=== PATIENT | female | born 1940 | race Caucasian/White ===

== ENCOUNTER → 2017-11-03 | Outpatient (CLI) | payer MEDICARE, OTHER ==
[~2017-11-03] MED LIST: ALBU90OI INH; AZIT250 PO; BUDE6HFA INH; DOCU100 PO; DULERA 200 MCG/13 GM INH; FAMO20 PO; LOVA40 PO; MIRT15 PO; OMEP20ER; OXYB5; PARO20; PRIM250; PRIM50 PO; PROP20; Percocet 5-3251 EACH PO; ROXICODONE5 MG PO; SENN187 PO; SERT50 PO; TIOT18 INH
== END | disposition home or self-care (01) ==
LOC: LAB SHORT 17:33 → LAB 17:33
DX: N39.41 Urge incontinence (principal)
CPT/HCPCS: 87086

== ENCOUNTER → 2018-12-20 | Outpatient (CLI) | payer MEDICARE, OTHER ==
[~2018-12-20] MED LIST changes: +ATOR10 PO; +Augmentin 875-1 EACH PO; +PARO20 PO; -PRIM50 PO; +Primidone50 MG PO
[2018-12-20 13:09] LABS: BASOPHILS ABSOLUTE AUTO 0.02 K/mm3 (0.00-0.23); BASOPHILS PERCENT AUTO 0 % (0-2); EOSINOPHILS ABSOLUTE AUTO 0.15 K/mm3 (0.00-0.68); EOSINOPHILS PERCENT AUTO 2 % (0-6); Hematocrit 40.6 % (33.0-51.0); Hemoglobin 13.1 g/dL (11.5-16.0); IMMATURE GRAN ABSOLUTE AUTO 0.02 K/mm3 (0.00-0.10); IMMATURE GRAN PERCENT AUTO 0 % (0-1); LYMPHOCYTES ABSOLUTE AUTO 2.21 K/mm3 (0.84-5.20); LYMPHOCYTES PERCENT AUTO 33 % (21-46); MONOCYTES ABSOLUTE AUTO 0.66 K/mm3 (0.16-1.47); MONOCYTES PERCENT AUTO 10 % (4-13); Mean Corpuscular HGB 31.3 pg (26.0-34.0); Mean Corpuscular HGB Conc 32.3 g/dL (31.5-36.5); Mean Corpuscular Volume 97 fL (80-100); NEUTROPHILS ABSOLUTE AUTO 3.64 K/mm3 (1.96-9.15); NEUTROPHILS PERCENT AUTO 54 % (41-73); Platelet Count 253 K/mm3 (150-400); RDW Coefficient Variation 13.1 % (11.7-14.2); RDW Standard Deviation 46.6 fL (35.1-46.3); Red Blood Cell Count 4.19 M/mm3 (3.80-5.20)
[2018-12-20 13:29] LABS: Alanine Aminotransfer (ALT/SGP 21 U/L (12-78); Albumin, Blood 3.6 g/dL (3.4-5.0); Alk Phos 63 U/L (50-136); Anion Gap 5 mmol/L (6-16); Aspartate Aminotrans (AST/SGOT 13 U/L (12-37); Bilirubin, Total 0.4 mg/dL (0.1-1.0); Blood Urea Nitrogen 7 mg/dL (8-24); Bun/Creatinine Ratio 10.1 (12.0-20.0); CO2, Blood 32 mmol/L (21-32); Calcium, Blood 8.3 mg/dL (8.5-10.1); Chloride, Blood 105 mmol/L (98-108); Globulin, Blood 3.6 g/dL (2.2-4.0); Glomerular Filtration Rate >60 (60-); Glucose, Blood 94 mg/dL (70-99); Potassium, Blood 3.3 mmol/L (3.5-5.5); Sodium, Blood 142 mmol/L (136-145); Total Protein, Blood 7.2 g/dL (6.4-8.2)
== END | disposition home or self-care (01) ==
LOC: LAB 12:59 → LAB SHORT 12:59
PROVIDERS: Physician Assistant
DX: N39.0 Urinary tract infection, site not specified (principal); R19.7 Diarrhea, unspecified; R53.83 Other fatigue
CPT/HCPCS: 0097U; 80053; 85025; 87086

== ENCOUNTER 2018-12-28 14:22 | Emergency (ER) | payer MEDICARE, OTHER ==
[~2018-12-28] VITALS: Ht 160 cm; Wt 77.1 kg
[~2018-12-28 14:22] MED LIST changes: -ATOR10 PO; -Augmentin 875-1 EACH PO; -PARO20 PO
[2018-12-28] MEDS ORDERED: PARO20 PO (15:14)
[2018-12-28] MEDS ORDERED: ATOR10 PO (15:14)
[2018-12-28 15:20] LABS: BASOPHILS ABSOLUTE AUTO 0.03 K/mm3 (0.00-0.23); BASOPHILS PERCENT AUTO 0 % (0-2); EOSINOPHILS ABSOLUTE AUTO 0.11 K/mm3 (0.00-0.68); EOSINOPHILS PERCENT AUTO 1 % (0-6); Hematocrit 40.8 % (33.0-51.0); IMMATURE GRAN ABSOLUTE AUTO 0.05 K/mm3 (0.00-0.10); IMMATURE GRAN PERCENT AUTO 1 % (0-1); LYMPHOCYTES ABSOLUTE AUTO 1.52 K/mm3 (0.84-5.20); LYMPHOCYTES PERCENT AUTO 14 % (21-46); MONOCYTES ABSOLUTE AUTO 0.92 K/mm3 (0.16-1.47); MONOCYTES PERCENT AUTO 9 % (4-13); Mean Corpuscular HGB Conc 31.9 g/dL (31.5-36.5); Mean Corpuscular Volume 97 fL (80-100); Mean Platelet Volume 10.1 fL (9.1-12.4); NEUTROPHILS ABSOLUTE AUTO 8.03 K/mm3 (1.96-9.15); NEUTROPHILS PERCENT AUTO 75 % (41-73); Platelet Count 228 K/mm3 (150-400); RDW Standard Deviation 46.1 fL (35.1-46.3); White Blood Cell Count 10.66 K/mm3 (4.00-11.30)
[2018-12-28 15:28] LABS: Alanine Aminotransfer (ALT/SGP 21 U/L (12-78); Albumin, Blood 3.5 g/dL (3.4-5.0); Alk Phos 65 U/L (50-136); Anion Gap 7 mmol/L (6-16); Aspartate Aminotrans (AST/SGOT 17 U/L (12-37); Bilirubin, Total 0.7 mg/dL (0.1-1.0); Blood Urea Nitrogen 12 mg/dL (8-24); Bun/Creatinine Ratio 15.4 (12.0-20.0); CO2, Blood 29 mmol/L (21-32); Calcium, Blood 8.3 mg/dL (8.5-10.1); Chloride, Blood 101 mmol/L (98-108); Creatinine, Blood 0.78 mg/dL (0.40-1.00); Globulin, Blood 3.5 g/dL (2.2-4.0); Glomerular Filtration Rate >60 (60-); Glucose, Blood 159 mg/dL (70-99); Potassium, Blood 3.4 mmol/L (3.5-5.5); Sodium, Blood 137 mmol/L (136-145)
[2018-12-28 17:11] LABS: Source, Urine Clean Catch
[2018-12-28] MEDS ORDERED: Augmentin 875-1 EACH PO (17:21)
[2018-12-28 17:27] LABS: Bilirubin, Urine Neg (Neg); Blood, Urine Neg (Neg); Glucose Qualitative, Urine Neg (Neg); Ketones, Urine Neg (Neg); Leukocyte Esterase, Urine Neg (Neg); Nitrite, Urine Neg (Neg); Protein, Urine Neg (Neg); Urobilinogen, Urine NORM (Normal)
[2018-12-28 17:50] LABS: Appearance, Urine Clear (Clear); Color, Urine Yellow (P-Yellow)
== END 2018-12-28 18:28 | disposition home or self-care (01) ==
LOC: ER 14:22
PROVIDERS: Physician Assistant
DX: K52.9 Noninfective gastroenteritis and colitis, unspecified (principal); Z79.899 Other long term (current) drug therapy; E78.5 Hyperlipidemia, unspecified; J44.9 Chronic obstructive pulmonary disease, unspecified; Z87.891 Personal history of nicotine dependence
CPT/HCPCS: 36415; 74177; 80053; 81003; 83690; 85025; 93005; 93010; 99284-25; J7120; Q9967

== ENCOUNTER → 2019-01-17 | Outpatient (CLI) | payer MEDICARE, OTHER ==
[~2019-01-17] MED LIST changes: +ATOR10 PO; +Augmentin 875-1 EACH PO; +PARO20 PO
[2019-01-18 09:55] LABS: C DIFFICILE BY DNA AMP Positive (Negative)
== END | disposition home or self-care (01) ==
LOC: LAB 20:30 → LAB SHORT 20:30 → LAB FUT 01-18 15:25 → EDSTATUS 01-18 15:25
PROVIDERS: Internal Medicine
DX: K51.50 Left sided colitis without complications (principal)
CPT/HCPCS: 87324; 87493

== ENCOUNTER → 2019-02-22 | Outpatient (CLI) | payer MEDICARE, OTHER ==
[2019-02-22 11:47] LABS: Adenovirus F 40/41 Not Detected (NOT DETECT); Astrovirus Not Detected (NOT DETECT); Campylobacter Sp Not Detected (NOT DETECT); Cryptosporidium Not Detected (NOT DETECT); Cyclospora Cayetanensis Not Detected (NOT DETECT); E. Coli O157 Not Detected (NOT DETECT); Entamoeba Histolytica Not Detected (NOT DETECT); Enteroaggregative E. coli-EAEC Not Detected (NOT DETECT); Enteropathogenic E. coli-EPEC Not Detected (NOT DETECT); Enterotoxigenic E. coli-ETEC Not Detected (NOT DETECT); Giardia Lamblia Not Detected (NOT DETECT); Norovirus GI/GII Not Detected (NOT DETECT); Plesiomonas Shigelloides Not Detected (NOT DETECT); Rotavirus A Not Detected (NOT DETECT); Salmonella Sp Not Detected (NOT DETECT); Sapovirus Not Detected (NOT DETECT); Shiga Toxin-prod E. coli-STEC Not Detected (NOT DETECT); Shigella/Enteroin E. coli-EIEC Not Detected (NOT DETECT); Vibrio Cholerae Not Detected (NOT DETECT); Vibrio Sp Not Detected (NOT DETECT); Yersinia Enterocolitica Not Detected (NOT DETECT)
== END | disposition home or self-care (01) ==
LOC: LAB SHORT 09:56 → LAB 09:56 → LAB FUT 02-22 10:05
PROVIDERS: Student in an Organized Health Care Education/Training Program
DX: K52.9 Noninfective gastroenteritis and colitis, unspecified (principal)
CPT/HCPCS: 0097U

== ENCOUNTER 2019-07-10 12:11 | Inpatient (IN) | payer MEDICARE, OTHER ==
[~2019-07-10] VITALS: Ht 160 cm; Wt 62.2 kg
[~2019-07-10 12:11] MED LIST changes: -ALBU90OI INH; -LOVA40 PO; -PARO20 PO; -Primidone50 MG PO
[2019-07-10 13:00] LABS: BASOPHILS ABSOLUTE AUTO 0.08 K/mm3 (0.00-0.23); BASOPHILS PERCENT AUTO 1 % (0-2); EOSINOPHILS PERCENT AUTO 12 % (0-6); Hematocrit 42.9 % (33.0-51.0); Hemoglobin 13.3 g/dL (11.5-16.0); IMMATURE GRAN ABSOLUTE AUTO 0.04 K/mm3 (0.00-0.10); IMMATURE GRAN PERCENT AUTO 0 % (0-1); LYMPHOCYTES ABSOLUTE AUTO 2.37 K/mm3 (0.84-5.20); LYMPHOCYTES PERCENT AUTO 26 % (21-46); MONOCYTES ABSOLUTE AUTO 0.68 K/mm3 (0.16-1.47); MONOCYTES PERCENT AUTO 7 % (4-13); Mean Corpuscular HGB 31.4 pg (26.0-34.0); Mean Corpuscular Volume 101 fL (80-100); Mean Platelet Volume 10.2 fL (9.1-12.4); NEUTROPHILS ABSOLUTE AUTO 4.88 K/mm3 (1.96-9.15); NEUTROPHILS PERCENT AUTO 53 % (41-73); Platelet Count 273 K/mm3 (150-400); RDW Coefficient Variation 13.2 % (11.7-14.2); RDW Standard Deviation 49.1 fL (35.1-46.3); Red Blood Cell Count 4.24 M/mm3 (3.80-5.20); White Blood Cell Count 9.15 K/mm3 (4.00-11.30)
[2019-07-10 13:27] LABS: Troponin I <0.015 ng/mL (0.000-0.040)
[2019-07-10 13:28] LABS: Alanine Aminotransfer (ALT/SGP 31 U/L (12-78); Albumin, Blood 3.3 g/dL (3.4-5.0); Albumin/Globulin Ratio 0.9 (0.8-1.8); Alk Phos 64 U/L (50-136); Anion Gap 3 mmol/L (6-16); Aspartate Aminotrans (AST/SGOT 20 U/L (12-37); Bilirubin, Total 0.2 mg/dL (0.1-1.0); Blood Urea Nitrogen 14 mg/dL (8-24); Bun/Creatinine Ratio 20.4 (12.0-20.0); CO2, Blood 36 mmol/L (21-32); Calcium, Blood 8.9 mg/dL (8.5-10.1); Chloride, Blood 103 mmol/L (98-108); Creatinine, Blood 0.69 mg/dL (0.40-1.00); Globulin, Blood 3.7 g/dL (2.2-4.0); Glomerular Filtration Rate >60 (60-); Glucose, Blood 104 mg/dL (70-99); Potassium, Blood 3.5 mmol/L (3.5-5.5); Sodium, Blood 142 mmol/L (136-145)
[2019-07-10] MEDS ORDERED: LOVA40 PO (14:45)
[2019-07-10] MEDS ORDERED: ALBU90OI INH (14:46)
[2019-07-10] MEDS ORDERED: Mysoline250 MG PO (14:46)
[2019-07-10] MEDS ORDERED: Dyazide 37.5-21 EACH PO (14:47)
[2019-07-10] MEDS ORDERED: MONT10T PO (14:47)
[2019-07-10] MEDS ORDERED: Paxil40 MG PO (14:47)
[2019-07-10] MEDS ORDERED: POTA8 PO (14:48)
[2019-07-10] MEDS ORDERED: PROBIOTIC1 EAC2 PO (14:48)
[2019-07-10] MEDS ORDERED: STIOLTO RESPIMAT4 GM INH (14:57)
[2019-07-10] MEDS ORDERED: ALBU2.5V5 INH (14:58)
--- NOTE | 2019-07-10 18:48 | NUR ---
PT ARRIVED TO PCU 1 VIA GURNEY FROM ED. SHE WAS MOVED TO BED, SHE IS ON BIPAP, TOLERATING OK. BUT WANTS TO DRINK AND IS HUNGRY. CALLED DR. BECERRIL REGARDING FEEDING HER, SHE IS OK FOR HER TO HAVE SOMETHING LONG SHE ISN'T OFF BIPAP VERY LONG, WILL GIVE HER AN ENSURE TONIGHT, SHE IS A/OX3, PLEASANT AND COOPERATIVE WITH CARE, FOLLOWS COMMANDS WELL, DENIES ANY COMPLAINTS OF PAIN, LUNGS ARE DIM T/O, OCC PRODUCTIVE COUGH OF CLEAR SPUTUM IS HER NORM, SATS ARE 94-95% ON BIPAP, REMOVED IT AND PUT HER ON 6 LITERS 0XYMIZER FOR A DRINK OF WATER, SHE CAME DOWN TO 90%, PLACED HER BACK ON BIPAP, HRR, TELE IN PLACE RUNNING SR PER MONITOR, SEE STRIP, NO EDEMA NOTED, PPP+2, CAP REFILL <3SEC, VS STABLE, AFEBRILE, IV TO RIGHT AND LEFT FA'S, BTX4, ABD FLAT SOFT NONTENDER, VOIDS WITHOUT DIFF, SKIN C/W/D, MAEW, BLADIMIR, CALL LIGHT IN REACH.
[2019-07-11 03:51] LABS: Hematocrit 38.3 % (33.0-51.0); Mean Corpuscular HGB 31.3 pg (26.0-34.0); Mean Corpuscular HGB Conc 31.3 g/dL (31.5-36.5); Mean Corpuscular Volume 100 fL (80-100); Mean Platelet Volume 10.3 fL (9.1-12.4); Platelet Count 256 K/mm3 (150-400); RDW Standard Deviation 47.6 fL (35.1-46.3); Red Blood Cell Count 3.83 M/mm3 (3.80-5.20)
[2019-07-11 04:08] LABS: Anion Gap 5 mmol/L (6-16); Blood Urea Nitrogen 13 mg/dL (8-24); Bun/Creatinine Ratio 20.7 (12.0-20.0); CO2, Blood 30 mmol/L (21-32); Chloride, Blood 107 mmol/L (98-108); Creatinine, Blood 0.63 mg/dL (0.40-1.00); Glomerular Filtration Rate >60 (60-); Glucose, Blood 110 mg/dL (70-99); Potassium, Blood 3.8 mmol/L (3.5-5.5); Sodium, Blood 142 mmol/L (136-145)
--- NOTE | 2019-07-11 05:01 | NUR ---
Shift Summary Pt is alert and oriented. No apparent sign of distress this shift. VSS. Pt tolerating [place] humidified NC at 5-7 L depending on excertion. At times, pt has coughing episodes and desaturates, able to recover. Pt SBA to BSC for voiding and BM this shift. NS infusing to LFA at 75mls per order. Pt is able to make needs known with call light, is calm and cooperative with care. Pt tearful at times this shift when speaking about late who in March of 2019; pt stating "I lost 40 pounds and began smoking again". Pt ecouraged to quit smoking, responded well to encouragement. Potassium replaced overnight per orders, results this AM are 3.8. No events on tele. No complaints of pain or discomfort. Pt with no acute changes from initial shift assessment. Will continue to monitor until day RN assumes care
[2019-07-11 06:48] LABS: Adenovirus Not Detected (NOT DETECT); Bordetella pertussis Not Detected (NOT DETECT); Chlamydophila pneumoniae Not Detected (NOT DETECT); Coronavirus 229E Not Detected (NOT DETECT); Coronavirus HKU1 Not Detected (NOT DETECT); Coronavirus NL63 Not Detected (NOT DETECT); Coronavirus OC43 Not Detected (NOT DETECT); Human Metapneumovirus Not Detected (NOT DETECT); Human Rhinovirus/Enterovirus Not Detected (NOT DETECT); Influenza A Not Detected (NOT DETECT); Influenza A/2009-H1 Not Detected (NOT DETECT); Influenza A/H1 Not Detected (NOT DETECT); Influenza A/H3 Not Detected (NOT DETECT); Influenza B Not Detected (NOT DETECT); Mycoplasma pneumoniae Not Detected (NOT DETECT); Parainfluenza Virus 1 Not Detected (NOT DETECT); Parainfluenza Virus 2 Not Detected (NOT DETECT); Parainfluenza Virus 3 Not Detected (NOT DETECT); Parainfluenza Virus 4 Not Detected (NOT DETECT); Respiratory Syncytial Virus Not Detected (NOT DETECT)
[2019-07-11] MEDS ORDERED: Dyazide 37.5/251 EA PO (10:44)
[2019-07-11] MEDS ORDERED: PROM25 PO (10:45)
[2019-07-11] MEDS ORDERED: STIOLTO RESPIMAT4 GM INH (10:46)
[2019-07-11] MEDS ORDERED: POTA8 PO (10:47)
[2019-07-11] MEDS ORDERED: MONT10T PO (10:48)
--- NOTE | 2019-07-11 17:12 | NUR ---
SHIFT SUMMARY: PT ALERT AND ORIENTED X 3. PT CHANGED TO MEDICAL STATUS TODAY AWAITING TO TRANSFER TO MEDICAL FLOOR. PT HRR SR ON THE 60'S DENIES CHEST PAIN FOR THE SHIFT. PT WITH OCCASIONAL MOIST COUGH MEDICATED WITH COUGH MEDICINE AND BREATHING TX REPORTED EFFECTIVE PER PT. PT 02 TITRATED TO 6L VIA NASAL CANNULA, PT SATS KEPT ABOVE 90% FOR THE SHIFT, THE REST OF THE VITALS REMAINED STABLE. PT STAND BY ASSISTS FOR TOILET TRANSFER. COMPLIANT WITH MEDIACTION REGIMEN, TO REPORT TO ONCOMING SHIFT. WILL MONITOR.
--- NOTE | 2019-07-11 21:00 | NUR ---
Assumed care Pt alert and oriented, family at bedside, VSS, call light in reach, able to make needs known by using call light, SBA with FWW to bathroom for voiding, steady gait. Pt is medical status without tele per orders. Persistant cough. Pt is 6L [place] Humidified NC, plan to attempt to titrate to baseline of 5L NC. No acute concerns to note at this time.
--- NOTE | 2019-07-12 01:45 | NUR ---
Pt oxygen titrated to 5L HFNC; baseline for pt. Will continue to monitor. Oxygen saturations 91%
--- NOTE | 2019-07-12 05:45 | NUR ---
Shift Summary No acute events overnight. Pt continues with episodes of coughing which results in moderate desaturations down to 80-85%, pt recovers rapidly once coughing stops. Pt with productive cough. Otherwise, respiratory status improving this shift as evidenced by pt tolerating o2 titration down to baseline 5L NC. Pt also improving as evidenced by pt tolerating walking to bathroom without desaturation or increased oxygen demand (last noc pt only tolerating bsc). Pt is alert and oriented, VSS. Pt uses call light to make needs known. Bed low and locked. Will continue to monitor.
--- NOTE | 2019-07-12 10:14 | NUR ---
PT AWAKE RESTING IN BED THIS AM W FAMILY AT BEDSIDE. PT DENIED C/O PAIN OR SOB WORSE THAN BASELINE. PT STATES SHE FEELS BETTER THIS AM AND IS HOPING TO GO HOME TODAY. SATS 97-90% ON 5L (BASELINE 02) VIA NC. SATS DROP TO 87% WITH SPEECH, EATING; DYSPNEA W EXERTION. LUNGS VERY TIGHT T/O W VERY DIMINISHED LUNG SOUNDS TO BASES. SCATTERED WHEEZING TO UPPER LOBES. PT ABLE TO AMBUALTE TO BATHROOM W SBA. DR BECERRIL TO SEE PT SHORTLY.
--- NOTE | 2019-07-12 11:47 | NUR ---
ASSUMED PT CARE, TRANSFER FROM PCU 1. DX COPD EXAC. LUNGS ARE DECREASED T/O HOWEVER NO WHEEZES @ THIS TIME. SHE STATE SHORTNESS OF BREATH IMPROVING. PLEASANT AFFECT. IV SOLUMEDROL 60MG GIVEN/ORDER. SUPPORTIVE FAMILY @ BEDSIDE. VSS w BIOX 94% 5L.
[2019-07-12 15:11] LABS: Adenovirus F 40/41 Not Detected (NOT DETECT); Astrovirus Not Detected (NOT DETECT); Campylobacter Sp Not Detected (NOT DETECT); Cryptosporidium Not Detected (NOT DETECT); Cyclospora Cayetanensis Not Detected (NOT DETECT); E. Coli O157 Not Detected (NOT DETECT); Entamoeba Histolytica Not Detected (NOT DETECT); Enteroaggregative E. coli-EAEC Not Detected (NOT DETECT); Enteropathogenic E. coli-EPEC Not Detected (NOT DETECT); Enterotoxigenic E. coli-ETEC Not Detected (NOT DETECT); Giardia Lamblia Not Detected (NOT DETECT); Norovirus GI/GII Not Detected (NOT DETECT); Plesiomonas Shigelloides Not Detected (NOT DETECT); Rotavirus A Not Detected (NOT DETECT); Salmonella Sp Not Detected (NOT DETECT); Sapovirus Not Detected (NOT DETECT); Shiga Toxin-prod E. coli-STEC Not Detected (NOT DETECT); Shigella/Enteroin E. coli-EIEC Not Detected (NOT DETECT); Vibrio Cholerae Not Detected (NOT DETECT); Vibrio Sp Not Detected (NOT DETECT); Yersinia Enterocolitica Not Detected (NOT DETECT)
--- NOTE | 2019-07-12 18:16 | NUR ---
SUMMARY PT IS A/O X4, PLEASANT AFFECT. SHE IS UP W SBA/FWW TO BR. DX COPD EXAC. LUNGS VERY DECREASED T/O, @ X'S EXP WHEEZES, O2 @ 5L, BIOX 90-92%, SGE STATE CINTUNUING SHORTNESS OF BREATH HOWEVER STATES IMPROVING. SHE HAD ONE EPISODE SINCE TRANSFER TO MEDICAL FLOOR TODAY WHERE SHE STATE EXTREME SOB, RESPTHER NOTIFIED, PROVIDE NEB TX, PT ABLE TO GET RELIEF. @ X'S SHE HAS DRY HACKING COUGH, HAVE GIVEN PRN TESSALON/ORDER & SCHEDULED HUMABID LA. SHE STATE LOOSE STOOLS X "1 MONTH", DR WHITTEN GI PANEL WHICH WAS NEGATIVE. VSS
--- NOTE | 2019-07-13 05:04 | NUR ---
SHIFT SUMMARY PT IS A 78 Y/O FEMALE, ADMITTED FOR ACUTE RESPIRATORY FAILURE. SHE IS A&O X 4, AND SBA/INDEPENDENT TO THE BATHROOM. PT REPORTED AN INTERMITTENT NONPRODUCTIVE COUGH. NO COMPLAINTS OF PAIN, NAUSEA OR ACUTE SOB. VITAL SIGNS STABLE. NO OTHER ACUTE CHANGES IN PT CONDITION NOTED. WILL CONTINUE TO MONITOR AND TREAT PER EMAR UNTIL HAND OFF TO DAY SHIFT RN.
[2019-07-13] MEDS ORDERED: BENZ100A PO (11:55)
[2019-07-13] MEDS ORDERED: Prednisone20 MG PO (11:55)
--- NOTE | 2019-07-13 15:00 | NUR ---
DISCHARGE PT STATE BREATHING CONTINUES TO IMPROVE. LS CONTINUE DECREASED, SHE STATE COUGH BECOMING MORE PRODUCTIVE. O2 @ HOME DOSE 5L. DR BECERRIL IN TO SEE HER STATE OK FOR D/C HOME TODAY AFTER HOME O2 EVAL. 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 D/C INSTRUCT PROVIDED, F/U APPTS SCHEDULED W CREDIT CARD CONTROL CLERK FOR JUL 20 @ 4PM & PCP TOMORROW @ 3PM, PT STATE SATISFACTION. IV SITES DC INTACT. SCRIPTS FAXED TO [facility]/REQUEST. SHE STATE TRANSPORTATION HOME ENROUTE W PORTABLE O2. SHE IS PLEASANT/APPRECIATIVE STATE READY FOR D/C HOME.
== END 2019-07-13 15:45 | disposition home or self-care (01) | DRG 189 ==
LOC: ER 12:11 → PCU 14:50 → MEDS 07-12 10:32 → ENPENDDIS 07-13 14:01 → MEDS 07-13 15:45
PROVIDERS: Nurse Practitioner Acute Care; Physician Assistant; ADMIT Internal Medicine
PROC: 5A09357 Assistance with Respiratory Ventilation, Less than 24 Consecutive Hours, Continuous Positive Airway Pressure (ICD-10-PCS; principal; 2019-07-10)
DX: J96.21 Acute and chronic respiratory failure with hypoxia (principal); J44.1 Chronic obstructive pulmonary disease with (acute) exacerbation; F32.9 Major depressive disorder, single episode, unspecified; E78.5 Hyperlipidemia, unspecified; I10 Essential (primary) hypertension; F17.200 Nicotine dependence, unspecified, uncomplicated; Z66 Do not resuscitate; K52.9 Noninfective gastroenteritis and colitis, unspecified; Z99.81 Dependence on supplemental oxygen
CPT/HCPCS: 0097U; 0099U; 36415; 71046; 80048; 80053; 83880; 84145; 84484; 85025; 85027; 93005; 93010; 94640; 94644; 94660; 94761; 94762; 96365; 96366; 96367; 96368; 96375; 99285-25; J0456; J1650; J2930; J3475; J3480; J7030; J7050

== ENCOUNTER → 2021-08-27 | Outpatient (CLI) | payer MEDICARE, OTHER ==
[~2021-08-27] MED LIST changes: +ALBU2.5V5 INH; +ALBU90OI INH; +BENZ100A PO; +Dyazide 37.5-21 EACH PO; +Dyazide 37.5/251 EA PO; +LOVA40 PO; +MONT10T PO; +Mysoline250 MG PO; +POTA8 PO; +PROBIOTIC1 EAC2 PO; +PROM25 PO; +Paxil40 MG PO; +Prednisone20 MG PO; +STIOLTO RESPIMAT4 GM INH
== END | disposition home or self-care (01) ==
LOC: LAB SHORT 07:26 → PLD 07:26
DX: L82.1 Other seborrheic keratosis (principal)
CPT/HCPCS: 88305